=== PATIENT | female | born 1995 ===

== ENCOUNTER 2017-01-07 15:50 | Emergency (ER) | payer OTHER ==
[2017-01-07 15:51] VITALS: BMI 28.2
--- NOTE | 2017-01-07 17:30 | ED PDOC ---
HPI: Abdomen Time Seen by Provider: 01/07/17 16:42 Chief Complaint (Nursing): GI Problem Chief Complaint (Provider): abd pain History Per: Patient Additional Complaint(s): Patient presented to emergency department for evaluation of abdominal pain associated with nausea and vomiting. Patient states that symptoms started 2 days ago. She was seen today by primary doctor and was told to come to emergency department for evaluation of possible appendicitis. Patient states the pain starts in her periumbilical region and radiates to right lower quadrant. Patient denies any fever or chills. Past Medical History Reviewed: Historical Data, Nursing Documentation, Vital Signs Vital Signs: Last Vital Signs Temp 98.3 F 01/08/17 00:48 Pulse 79 01/08/17 00:48 Resp 16 01/08/17 00:48 BP 116/75 01/08/17 00:48 Pulse Ox 99 01/08/17 00:48 - Medical History PMH: No Chronic Diseases - Surgical History Surgical History: No Surg Hx - Family History Family History: States: No Known Family Hx - Living Arrangements Living Arrangements: With Family - Social History Current smoker - smoking cessation education provided: No Alcohol: None Drugs: Denies - Home Medications Home Medications: Ambulatory Orders Medication Instructions Recorded No Known Home Med 01/07/17 - Allergies Allergies/Adverse Reactions: Allergies Allergy/AdvReac Type Severity Reaction Status Date / Time No Known Allergies Allergy Verified 12/28/16 18:43 Review of Systems ROS Statement: Except As Marked, All Systems Reviewed And Found Negative Constitutional: Negative for: Fever, Chills Cardiovascular: Negative for: Chest Pain Respiratory: Negative for: Cough Gastrointestinal: Positive for: Nausea, Vomiting, Abdominal Pain, Diarrhea Genitourinary Female: Negative for: Dysuria, Frequency, Incontinence, Hematuria , Vaginal Discharge, Vaginal Bleeding Physical Exam - Reviewed Nursing Documentation Reviewed: Yes Vital Signs Reviewed: Yes - Physical Exam Appears: Positive for: Well, Non-toxic, No Acute Distress Cardiovascular/Chest: Positive for: Regular Rate, Rhythm Respiratory: Positive for: Normal Breath Sounds Gastrointestinal/Abdominal: Positive for: Tenderness (Periumbilical region and right lower quadrant, no rebound, no guarding, no distention) Back: Negative for: L CVA Tenderness, R CVA Tenderness Extremity: Positive for: Normal ROM. Negative for: Pedal Edema Neurologic/Psych: Positive for: Alert, Oriented - Laboratory Results Result Diagrams: 01/07/17 18:10 01/07/17 18:10 Urine POC: Negative Urine dip results: Positive for: Ketones, Bilirubin, Protein. Negative for: Leukocyte Esterase, Blood, Nitrate, Glucose - ECG O2 Sat by Pulse Oximetry: 100 Pulse Ox Interpretation: Normal Medical Decision Making Medical Decision Makin-year-old female with abdominal pain Plan: CBC CMP Urine dip and Lipase CT abdomen and pelvis with IV contrast IV fluids Patient declined pain medication Case was signed out to HENRIK Marquez pending CT results and final disposition. Disposition - Clinical Impression Clinical Impression: Abdominal pain - Patient ED Disposition Is Patient to be Admitted: Transfer of Care - Disposition Referrals: Jodie Cobian MD [Primary Care Provider] - [facility] [Outside] Disposition: Transfer of Care Disposition Time: 14:29 Condition: FAIR Instructions: Ovarian Cyst (ED) Forms: [facility] ED School/Work Excuse Patient Signed Over To: Emre Marquez Handoff Comments: Case was signed out pending the CT results and final disposition Results - Lab Results Lab Results: 01/07/17 01/07/17 18:19 18:10 WBC 8.9 RBC 4.77 Hgb 13.5 Hct 40.6 MCV 85.1 MCH 28.2 MCHC 33.2 RDW 13.6 Plt Count 252 MPV 8.1 Neut % (Auto) 74.8 Lymph % (Auto) 18.1 L [place] % (Auto) 6.2 Eos % (Auto) 0.6 Baso % (Auto) 0.3 Neut # 6.7 Lymph # 1.6 [place] # 0.6 Eos # 0.1 Baso # 0.0 Sodium 139 Potassium 3.7 Chloride 101 Carbon Dioxide 28 Anion Gap 14 BUN 8 Creatinine 0.6 L Est GFR ( Amer) > 60 Est GFR (Non-Af Amer) > 60 Random Glucose 75 Calcium 9.5 Total Bilirubin 0.8 AST 44 H D ALT 43 Alkaline Phosphatase 104 Total Protein 7.8 Albumin 4.4 Globulin 3.4 Albumin/Globulin Ratio 1.3 Lipase 56 Urine Color Yellow Urine Clarity Slighty-cloudy Urine pH 6.0 Ur Specific [place] 1.026 Urine Protein 30 Urine Glucose (UA) Neg Urine Ketones 80 Urine Blood Negative Urine Nitrate Negative Urine Bilirubin Negative Urine Urobilinogen 2.0 H Ur Leukocyte Esterase Neg Urine RBC (Auto) 5 H Urine Microscopic WBC 2 Ur Squamous Epith Cells 13 H Urine Bacteria Occ H
[2017-01-07] MEDS ORDERED: Sodium Chloride 0.9% 1,000 ML IV STA (17:36)
[2017-01-07 18:15] LABS: BASO % 0.3 % (0.0-2.0); EOS # 0.1 K/uL (0.0-0.7); EOS % 0.6 % (0.0-4.0); HEMATOCRIT 40.6 % (34.0-47.0); LYMPH # 1.6 K/uL (1.0-4.3); LYMPH % 18.1 % (20.0-40.0); MEAN CELL VOLUME 85.1 fl (81.0-99.0); MEAN CORPUSCULAR HEMOGLOBIN 28.2 pg (27.0-31.0); MEAN CORPUSCULAR HGB CONC 33.2 g/dL (33.0-37.0); MEAN PLATELET VOLUME 8.1 fl (7.2-11.7); MONO # 0.6 K/uL (0.0-0.8); MONO % 6.2 % (0.0-10.0); NEUT # 6.7 K/uL (1.8-7.0); NEUT % 74.8 % (50.0-75.0); NRBC % 0.1 % (0.0-0.0); RED CELL DISTRIBUTION WIDTH 13.6 % (11.5-14.5); WHITE BLOOD COUNT 8.9 K/uL (4.8-10.8)
[2017-01-07 18:31] LABS: ALB/GLOB RATIO 1.3 (1.0-2.1); ALKALINE PHOSPHATASE 104 U/L (38-126); ALT/SGPT 43 U/L (9-52); AST/SGOT 44 U/L (14-36); BILIRUBIN,TOTAL 0.8 mg/dl (0.2-1.3); BLOOD UREA NITROGEN 8 mg/dl (7-17); CALCIUM 9.5 mg/dL (8.4-10.2); CARBON DIOXIDE 28 mmol/L (22-30); CHLORIDE 101 mmol/L (98-107); GFR AFRICAN-AMERICAN > 60; GLUCOSE,RANDOM 75 mg/dL (65-105); LIPASE 56 U/L (23-300); POTASSIUM 3.7 MMOL/L (3.6-5.0); SODIUM 139 mmol/l (132-148); TOTAL PROTEIN 7.8 G/DL (6.3-8.2)
[2017-01-07 18:38] LABS: RBC URINE 5 /hpf (0-3); URINE BACTERIA OCC (<OCC); URINE BILIRUBIN NEGATIVE (NEGATIVE); URINE BLOOD NEGATIVE (NEGATIVE); URINE COLOR YELLOW (YELLOW); URINE GLUCOSE (UA) NEG (Normal); URINE KETONE 80 mg/dL (NEGATIVE); URINE LEUKOCYTE ESTERASE NEG Leu/uL (Negative); URINE PROTEIN 30 mg/dL (NEGATIVE); WBC URINE 2 /hpf (0-5)
[2017-01-07] MEDS ORDERED: Iohexol 300 100 ML IJ ONE (19:07)
[2017-01-07] MEDS ORDERED: Sodium Chloride 0.9% 100 ML ONE (19:08)
--- NOTE | 2017-01-07 20:35 | CT ---
EXAM: CT Abdomen and Pelvis With Intravenous Contrast CLINICAL HISTORY: 21 years old, female; Pain; Abdominal pain; Periumbilical; Additional info: Periumbilical and rlq pain. Sent eLizzy Monet Physician doc. With request TECHNIQUE: Axial computed tomography images of the abdomen and pelvis with intravenous contrast. This CT exam was performed using one or more of the following dose reduction techniques: automated exposure control, adjustment of the mA and/or kV according to patient size, and/or use of iterative reconstruction technique. Coronal and sagittal reformatted images were created and reviewed. CONTRAST: 95 mL of [id number] administered intravenously. EXAM DATE/TIME: 01/07/2017 5:37 PM COMPARISON: Prior CT abdomen and pelvis of 07/05/2016 FINDINGS: LOWER THORAX: No infiltrate seen in the lung bases. ABDOMEN: LIVER: No acute abnormality of the liver identified. GALLBLADDER AND BILE DUCTS: No CT evidence of acute cholecystitis. No evidence of significant biliary ductal dilatation. PANCREAS: No CT evidence of acute pancreatitis. SPLEEN: No acute abnormality of the spleen identified. ADRENALS: No acute abnormality of the adrenal glands identified. KIDNEYS AND URETERS: No acute abnormality of the kidneys identified. No evidence of significant hydrouereteronephrosis. STOMACH AND BOWEL: No acute abnormality of the stomach or duodenum identified. No evidence of small bowel obstruction. No acute abnormality of the colon identified. APPENDIX: Appendix is seen, images 38-43 of series 601 and is within normal limits in appearance. PELVIS: BLADDER: No acute abnormality of the bladder identified. REPRODUCTIVE: 2.3 cm cystic lesion with a thin, enhancing and collapsed soft tissue rim in the right ovary. This has an appearance suggestive of a recently ruptured/involuting ovarian cyst, such as a corpus luteal cyst. Followup pelvic ultrasound as clinically indicated. No evidence of large left adnexal masses. No acute abnormality of the uterus identified. ABDOMEN and PELVIS: INTRAPERITONEAL SPACE: Small amount of free fluid in the pelvis. This is most likely physiologic in nature. No evidence of free air. BONES/JOINTS: No acute fractures or other acute bony abnormality noted. SOFT TISSUES: No acute abnormality of the visualized soft tissues is seen. VASCULATURE: No evidence of abdominal aortic aneurysm. No evidence of periaortic hemorrhage. LYMPH NODES: No evidence of diffuse lymphadenopathy. IMPRESSION: - No evidence of significant acute process. Appendix is normal. - Small involuting cystic lesion in the right ovary. - Small amount of pelvic free fluid, most likely physiologic in nature. - See above for remaining findings.
--- NOTE | 2017-01-07 21:58 | ED PDOC ---
- Laboratory Results Result Diagrams: 01/07/17 18:10 01/07/17 18:10 Urine POC: Negative - ECG O2 Sat by Pulse Oximetry: 100 - Progress ED Course And Treament: CT ABD/PELVIS: IMPRESSION: - No evidence of significant acute process. Appendix is normal. - Small involuting cystic lesion in the right ovary. - Small amount of pelvic free fluid, most likely physiologic in nature. - See above for remaining findings. Thank you for allowing us to participate in the care of your patient. Dictated and Authenticated by: Ivon Jolly MD TRANSVAGINAL US: IMPRESSION: There is some free fluid in the pelvic cul-de-sac which contains internal echoes and a small amount of hemorrhage is possible. Thank you for allowing us to participate in the care of your patient. Dictated and Authenticated by: Hugo Rosario MD Disposition - Clinical Impression Clinical Impression: Ovarian cyst - POA Present On Arrival: None - Disposition Referrals: Jodie Cobian MD [Primary Care Provider[facility] - [facility] Disposition: Routine/Home Disposition Time: 00:39 Condition: FAIR Instructions: Ovarian Cyst (ED) Forms: [facility] ED School/Work Excuse
[2017-01-08 00:49] VITALS: BP 116/75; PULSE 79; RESP 16; TEMP 98.3
--- NOTE | 2017-01-08 11:29 | US ---
Pelvic ultrasound 01/07/2017. History: Right ovarian cyst. Transvaginal sonographic evaluation of the pelvis performed. Correlation made with CT scan of the abdomen and pelvis obtained earlier same day. Findings: The uterus is retroverted measuring approximately 7.2 x 4.5 x 3.7 cm. Endometrial stripe measures approximately 7.2 mm. No uterine masses are identified of. There is small amount of free fluid in the cul de sac. Right ovary measures approximately 3.1 x 3.1 x 1.6 cm at exhibits arterial flow. Right ovary measures 3.6 x 4.3 x 2.7 cm and also exhibits arterial flow. There is a small cyst right ovary measuring 2.2 x 2.1 x 1.4 cm. There is slight irregularity of the luminal surface which could represent a degenerating-involuting cyst. Followup study in 6 weeks could be performed to assess for resolution. Impression: Small right ovarian cyst with small amount of free fluid in the cul de sac as detailed above. Follow-up pelvic ultrasound in 6 weeks recommended to assess for resolution.
[2017-01-08 14:30] VITALS: O2SAT 100
== END 2017-01-08 00:42 | disposition home or self-care (01) ==
LOC: H.ER 15:50
DX: R10.9 Unspecified abdominal pain (principal)